=== PATIENT | female | born 1975 ===

== ENCOUNTER 2021-03-26 10:58 | Day surgery (SDC) | payer OTHER | END 2021-03-26 16:20 | disposition home or self-care (01) | LOC: CIR.AMB 10:58 | PROVIDERS: ATTEND Surgery | DX: D12.8 Benign neoplasm of rectum (principal); Z20.822 Contact with and (suspected) exposure to COVID-19; K64.8 Other hemorrhoids ==

== ENCOUNTER 2021-05-14 10:15 | Inpatient (IN) | payer OTHER ==
[~2021-05-14] VITALS: Ht 154.9 cm; Wt 75.3 kg
[2021-05-14] MEDS ORDERED: MIRALAX17 GM PO (10:32)
[2021-05-23] MEDS ORDERED: HYOSCYAMINE0.125 M1 SL (12:56)
[2021-05-23] MEDS ORDERED: OXYC1TAB9 PO (12:56)
[2021-05-23] MEDS ORDERED: INTESTINEX680 M1 PO (12:57)
== END 2021-05-23 17:41 | disposition home or self-care (01) | DRG 330 ==
LOC: ER 10:15 → SEC-K 13:47 → SURH 05-16 18:20
PROVIDERS: ADMIT Surgery; ATTEND Surgery
PROC: 0DBP4ZZ Excision of Rectum, Percutaneous Endoscopic Approach (ICD-10-PCS; 2021-05-20)
PROC: 0DTN4ZZ Resection of Sigmoid Colon, Percutaneous Endoscopic Approach (ICD-10-PCS; principal; 2021-05-20 15:00)
DX: K57.30 Diverticulosis of large intestine without perforation or abscess without bleeding (principal); K56.690 Other partial intestinal obstruction; K63.5 Polyp of colon; R59.0 Localized enlarged lymph nodes; R10.9 Unspecified abdominal pain; Z20.822 Contact with and (suspected) exposure to COVID-19